=== PATIENT | female | born 1965 | race African-American/Black ===

== ENCOUNTER 2022-11-18 00:56 | Emergency (ER) | payer OTHER ==
[2022-11-18 01:17] VITALS: BP 195/132; PULSE 82; RESP 18; TEMP 98.4; BMI 34.7
[2022-11-18] MEDS ORDERED: ONDANSETRON *ODT* 4 MG TABLET SL ONE (01:50)
[2022-11-18] MEDS ORDERED: CLINDAMYCIN HCL 150 MG CAPSULE (FP) PO ONE (01:50)
[2022-11-18] MEDS ORDERED: ONDANSETRON *ODT* 4 MG TABLET ONE (01:51)
[2022-11-18] MEDS ORDERED: CLINDAMYCIN HCL 150 MG CAPSULE (FP) ONE (01:51)
== END 2022-11-18 02:04 | disposition home or self-care (01) ==
LOC: JER 00:56
DX: K08.89 Other specified disorders of teeth and supporting structures (principal)
CPT/HCPCS: 99283-25; Q0162

== ENCOUNTER 2023-12-10 10:49 | Observation (INO) | payer OTHER ==
[2023-12-10] MEDS ORDERED: ACETAMINOPHEN INJECTION 100 ML IVPB ONE (11:52)
[2023-12-10] MEDS ORDERED: FAMOTIDINE 20 MG/50 ML IVPB 20 MG/50 ML MG IVPB ONE (11:53)
[2023-12-10] MEDS ORDERED: ONDANSETRON 4 MG/2 ML VIAL ONE (11:53)
[2023-12-10] MEDS ORDERED: MAG HYDROX/AL HYDROX/SIMETH 30 ML UNIT-DOSE CUP ONE (11:53)
[2023-12-10] MEDS ORDERED: LABETALOL HCL 20 MG/4 ML VIAL ONE (11:53)
[2023-12-10] MEDS: MAG HYDROX/AL HYDROX/SIMETH 30 ML UNIT-DOSE CUP PO ONE (12:20)
[2023-12-10] MEDS: ONDANSETRON 4 MG/2 ML VIAL IVPUSH ONE (12:21)
[2023-12-10] MEDS: ACETAMINOPHEN 1000 MG/100 ML BAG IVPB ONE (12:21)
[2023-12-10] MEDS: FAMOTIDINE 20 MG/50 ML IVPB 20 MG/50 ML MG IVPB ONE (12:21)
[2023-12-10] MEDS: LABETALOL HCL 5 MG/1 ML (100MG/20 ML VIAL) IVPUSH ONE ×2 (12:24→16:28)
[2023-12-10] MEDS: LACTATED RINGERS SOLUTION 1000 ML INFUS.BAG IV ONE (12:25)
[2023-12-10 12:26] LABS: BASO % 0.9 % (0-2.0); EOS % 0.5 % (0-4.5); HEMATOCRIT 45.2 % (32.4-45.2); HEMOGLOBIN 14.8 GM/dL (10.7-15.3); LYMPH % 29.6 % (8-40); MCHC 32.7 g/dl (32.0-36.0); MEAN CELL VOLUME 79.4 fl (80-96); MEAN PLT VOLUME 12.3 fl (7.5-11.1); MONO % 4.8 % (3.8-10.2); NEUT % 64.2 % (42.8-82.8); PLATELET COUNT 155 10^3/uL (134-434); RDW 14.1 % (11.6-15.6); WHITE BLOOD COUNT 5.3 K/mm3 (4.0-10.0)
[2023-12-10 12:34] LABS: PH,URINE 5.5 (5.0-8.0); URINE APPEARANCE CLEAR; URINE BILIRUBIN NEGATIVE (NEGATIVE); URINE COLOR YELLOW; URINE GLUCOSE (UA) 3+ (NEGATIVE); URINE KETONE 2+ (NEGATIVE); URINE LEUK ESTERASE NEGATIVE (NEGATIVE); URINE NITRITE NEGATIVE (NEGATIVE); URINE PROTEIN NEGATIVE (NEGATIVE); URINE UROBILINOGEN 0.2 mg/dL (0.2-1.0)
[2023-12-10 13:07] LABS: CHLORIDE 101 mmol/L (98-107); POTASSIUM 4.3 mmol/L (3.5-5.1); SODIUM 136 mmol/L (136-145)
[2023-12-10 13:09] LABS: ALBUMIN 3.7 g/dl (3.4-5.0); ANION GAP 6 mmol/L (4-13); CALCIUM 9.5 mg/dL (8.5-10.1); CO2 29 mmol/L (21-32)
[2023-12-10 13:12] LABS: CREATININE 1.3 mg/dL (0.55-1.3); SGOT/AST 10 U/L (15-37); SGPT/ALT 23 U/L (13-61)
[2023-12-10 13:15] LABS: ALK PHOS 98 U/L (45-117)
[2023-12-10 13:27] LABS: GLUCOSE,RANDOM 626 mg/dL (74-106)
[2023-12-10] MEDS: ACETAMINOPHEN 500 MG TABLET (FP) PO ONE (14:08)
[2023-12-10] MEDS ORDERED: ASPIRIN 81 MG CHEWABLE TABLETS ONE (14:39)
[2023-12-10] MEDS: ASPIRIN 81 MG CHEWABLE TABLETS PO ONE (14:54)
[2023-12-10] MEDS ORDERED: NITROGLYCERIN SUBLINGUAL 1/150 0.4 MG TAB SL PRN (16:22)
[2023-12-10] MEDS ORDERED: LISINOPRIL 20 MG TABLET PO SCH (16:30)
[2023-12-10] MEDS ORDERED: LISINOPRIL 20 MG TABLET ONE (16:34)
[2023-12-10] MEDS ORDERED: ATORVASTATIN CA 10 MG TABLET (FP) ONE (16:34)
[2023-12-10] MEDS ORDERED: POTASSIUM CHLORIDE TABS 20 MEQ TABLET.ER (FP) PO ONE (16:34)
[2023-12-10] MEDS ORDERED: ISOSORBIDE MONONITRATE 30 MG TAB.SR.24H (FP) PO ONE (16:35)
[2023-12-10] MEDS ORDERED: INSULIN (NOVOLOG) ASPART 100 UNITS/ML 10ML VIAL ONE ×2 (16:41→18:42)
[2023-12-10] MEDS: ISOSORBIDE MONONITRATE 30 MG TAB.SR.24H (FP) PO SCH (16:56)
[2023-12-10] MEDS: POTASSIUM CHLORIDE ORAL LIQUID 20 MEQ/15 ML PO ONE (16:56)
[2023-12-10] MEDS: ATORVASTATIN CA 10 MG TABLET (FP) PO ONE (16:56)
[2023-12-10] MEDS: INSULIN (NOVOLOG) ASPART 100 UNITS/ML 10ML VIAL SQ ONE (16:57)
[2023-12-10] MEDS: LACTATED RINGERS SOLUTION 1,000 ML/1,000 ML INFUS.BAG IV SCH (16:57)
[2023-12-10] MEDS ORDERED: ENOXAPARIN NA (PORCINE) 80 MG/0.8 ML DISP.SYRIN SQ ONE (18:42)
[2023-12-10] MEDS: INSULIN ASPART SLIDING SCALE (NOVOLOG) 1 VIAL SQ SCH (18:46)
[2023-12-10] MEDS: ENOXAPARIN NA (PORCINE) 80 MG/0.8 ML DISP.SYRIN SQ SCH (18:47)
[2023-12-10] MEDS: INSULIN (LEVEMIR) 100 UNITS/ML UNITS SQ SCH (18:48)
[2023-12-10] MEDS: CARVEDILOL 12.5 MG TABLET (FP) PO SCH (21:32)
[2023-12-10 23:27] VITALS: BMI 32.3
[2023-12-11] MEDS ORDERED: ACETAMINOPHEN 1000 MG/100 ML BAG IVPB PRN (03:41)
[2023-12-11] MEDS: ACETAMINOPHEN 1000 MG/100 ML BAG IVPB ONE (03:49)
[2023-12-11 07:17] LABS: POTASSIUM 4.1 mmol/L (3.5-5.1)
[2023-12-11 07:21] LABS: CALCIUM 8.8 mg/dL (8.5-10.1)
[2023-12-11 07:22] LABS: BLOOD UREA NITROGEN 18.7 mg/dL (7-18)
[2023-12-11 07:26] LABS: CREATININE 1.1 mg/dL (0.55-1.3)
[2023-12-11] MEDS: LOSARTAN 50MG/HCTZ 12.5MG 1 TAB PO ONE (07:36)
[2023-12-11] MEDS: CARVEDILOL 6.25 MG TABLET (FP) PO ONE (07:37)
[2023-12-11] MEDS: INSULIN REGULAR HUMAN 100 UNITS/ML *VIAL IVPUSH ONE (07:37)
[2023-12-11 07:47] LABS: BASO % 1.1 % (0-2.0); EOS % 1.4 % (0-4.5); HEMATOCRIT 40.1 % (32.4-45.2); HEMOGLOBIN 12.8 GM/dL (10.7-15.3); LYMPH % 36.4 % (8-40); MCH 25.5 pg (25.7-33.7); MCHC 31.9 g/dl (32.0-36.0); MEAN CELL VOLUME 79.8 fl (80-96); MONO % 7.8 % (3.8-10.2); NEUT % 53.3 % (42.8-82.8); PLATELET COUNT 128 10^3/uL (134-434); RBC 5.02 M/mm3 (3.60-5.2); WHITE BLOOD COUNT 5.9 K/mm3 (4.0-10.0)
[2023-12-11] MEDS: ACETAMINOPHEN 325 MG TABLET (FP) PO PRN (10:14)
[2023-12-11] MEDS: ASPIRIN COATED 81 MG TABLET.EC PO SCH (11:18)
[2023-12-11] MEDS: CARVEDILOL 12.5 MG TABLET (FP) PO ONE (16:53)
[2023-12-11] MEDS: LABETALOL HCL 20 MG/4 ML VIAL IVPUSH ONE (17:37)
[2023-12-11 17:38] VITALS: RESP 18; TEMP 98
[2023-12-11] MEDS ORDERED: LABETALOL HCL 20 MG/4 ML VIAL ONE (17:38)
[2023-12-11 17:52] VITALS: BP 164/94; PULSE 81
== END 2023-12-11 18:00 | disposition short-term general hospital (02) ==
LOC: JER 10:49 → JERBED 16:40 → J4W 19:50
PROVIDERS: ADMIT Internal Medicine; ATTEND Internal Medicine
PROC: 3E033NZ Introduction of Analgesics, Hypnotics, Sedatives into Peripheral Vein, Percutaneous Approach (ICD-10-PCS; principal; 2023-12-10)
PROC: 3E023GC Introduction of Other Therapeutic Substance into Muscle, Percutaneous Approach (ICD-10-PCS; 2023-12-10)
PROC: 3E033GC Introduction of Other Therapeutic Substance into Peripheral Vein, Percutaneous Approach (ICD-10-PCS; 2023-12-10)
PROC: 3E013VG Introduction of Insulin into Subcutaneous Tissue, Percutaneous Approach (ICD-10-PCS; 2023-12-10)
PROC: 3E033GC Introduction of Other Therapeutic Substance into Peripheral Vein, Percutaneous Approach (ICD-10-PCS; 2023-12-10)
PROC: 3E0337Z Introduction of Electrolytic and Water Balance Substance into Peripheral Vein, Percutaneous Approach (ICD-10-PCS; 2023-12-10)
DX: I21.4 Non-ST elevation (NSTEMI) myocardial infarction (principal); I16.0 Hypertensive urgency; R77.8 Other specified abnormalities of plasma proteins; E11.65 Type 2 diabetes mellitus with hyperglycemia
CPT/HCPCS: 36415; 70450-TC; 71045-TC-FY; 80048; 80053; 81003; 82962; 83036; 83690; 84484; 84702; 84703; 85025; 87086; 87635; 93005; 93010; 96361; 96365; 96372; 96374; 96375; 96376; 99285-25; G0378; J0131